=== PATIENT | female | born 2000 | race Caucasian/White ===

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

== ENCOUNTER 2020-04-30 22:56 | Emergency (ER) | payer MEDICAID ==
[~2020-04-30] VITALS: Ht 162.6 cm; Wt 102.1 kg
[2020-04-30 23:00] VITALS: BP 146/80
--- NOTE | 2020-04-30 23:07 | NUR ---
PT STEADY AMBULATING TO ROOM
--- NOTE | 2020-04-30 23:12 | NUR ---
PT GETS WEEKLY TESTOSTERONE SHOTS IN [place]. LAST SHOT "3 DAYS AGO" AND STATES NOTICED REDNESS AND PAIN THE DAY AFTER
[2020-04-30] MEDS ORDERED: LIDOCAINE-MPF 1%, 5ML ONE (23:27)
[2020-04-30] MEDS ORDERED: LIDOCAINE 1%, 10ML INFIL ONE (23:30)
--- NOTE | 2020-04-30 23:51 | NUR ---
ERP AT BEDSIDE FOR I/D
== END 2020-05-01 00:30 | disposition home or self-care (01) ==
LOC: ED 05-01 00:15
DX: L02.211 Cutaneous abscess of abdominal wall (principal); R10.9 Unspecified abdominal pain; M79.89 Other specified soft tissue disorders; Z90.89 Acquired absence of other organs
CPT/HCPCS: 10060; 99284

== ENCOUNTER 2020-06-21 22:58 | Emergency (ER) | payer MEDICAID ==
[~2020-06-21] VITALS: Ht 162.6 cm; Wt 104.4 kg
--- NOTE | 2020-06-21 23:28 | NUR ---
pt walked to room. in no acute distress at this time. placed on o2 sat and bp cuff. pt states she has not vomited today. resting comfortably.
[2020-06-22] MEDS ORDERED: SODIUM CHLORIDE FLUSH 10ML SYR IVF ONE
[2020-06-22 00:01] LABS: ALBUMIN 3.6 g/dL (3.4-5.0); ANION GAP 8 mmol/L (5-15); CALCIUM 8.5 mg/dL (8.5-10.1); CHLORIDE 112 mmol/L (98-107); CREATININE 0.95 mg/dL (0.55-1.02)
[2020-06-22 00:02] LABS: BASOPHILS % (AUTO) 1 % (0-1); EOSINOPHILS % (AUTO) 4 % (1-7); LYMPHOCYTES % (AUTO) 27 % (22-44); MEAN CORPUSCULAR HEMOGLOBIN 30.9 pg (27.0-34.8); MEAN CORPUSCULAR HGB CONC 35.1 g/dL (32.4-35.8); MEAN PLATELET VOLUME 8.1 fL (7.4-10.4); MONOCYTES % (AUTO) 7 % (2-9); NEUTROPHILS % (AUTO) 61 % (42-75); PLATELET COUNT 313 x10^3/uL (130-400); RED BLOOD COUNT 5.28 x10^6/uL (3.82-5.3); RED CELL DISTRIBUTION WIDTH 12.2 % (9.6-15.2)
[2020-06-22 00:03] LABS: MD NO
[2020-06-22 00:04] LABS: TROPONIN I < 0.015 ng/mL (0.000-0.045)
[2020-06-22 00:19] VITALS: BP 110/85
== END 2020-06-22 00:38 | disposition home or self-care (01) ==
LOC: ED 06-22 00:15
DX: J20.8 Acute bronchitis due to other specified organisms (principal); B34.9 Viral infection, unspecified; R07.9 Chest pain, unspecified; F17.200 Nicotine dependence, unspecified, uncomplicated
CPT/HCPCS: 36415; 71045; 80048; 82040; 84484; 85025; 85379; 99284

== ENCOUNTER 2020-07-21 03:04 | Emergency (ER) | payer MEDICAID ==
[~2020-07-21] VITALS: Ht 160 cm; Wt 104.8 kg
--- NOTE | 2020-07-21 03:15 | NUR ---
PT WHEELED TO ROOM WITH C COLLAR ON. PT C/O PAIN TO MULTIPLE AREAS AND XRAYS ORDERED. PAIN MEDS ORDERED AND PT MEDICATED PER EMAR. TORADOL IM TO RIGHT DELTOID GIVEN, AND PT PREFERS TO WAIT FOR C COLLAR TO CLEAR BEFORE TRYING TO TAKE PO MEDS SINCE SHE'S LYING FLAT.
[2020-07-21] MEDS ORDERED: ACETAMINOPHEN 500 MG TABLET ONE (03:30)
[2020-07-21] MEDS ORDERED: KETOROLAC 30 MG/1 ML IM ONE (03:30)
[2020-07-21] MEDS ORDERED: KETOROLAC 30 MG/1 ML ONE (03:30)
[2020-07-21] MEDS ORDERED: ACETAMINOPHEN 500 MG TABLET PO ONE (03:30)
[2020-07-21] MEDS ORDERED: DIPHENHYDRAMINE 50 MG CAPSULE ONE (04:18)
--- NOTE | 2020-07-21 04:25 | NUR ---
PT CALLED RN TO ROOM, AND C/O FEELING WARM AND FLUSHED, AND THAT SHE FEELS SOMETHING IN HER THROAT LIKE SOMETHING IS STUCK THERE. ON ASSESMENT PTS CHEEKS ARE RED AND WERE NOT THAT WAY EARLIER, AND PT ALSO HAS BLANCHED SKIN AROUND LIPS, AND APPEARS TO BE HAVING AN ALLERGIC REACTION TO THE TORADOL. MD TO BEDSIDE, AND BENADRYL ORDERED AND ADMINISTERED, ALONG WITH THE TYLENOL, PO. PT AIRWAY INTACT, GOOD AERATION AND OXYGENATION, AND NO DIFFICULTY IN TAKING PO MEDS. PT TAKEN TO XRAY AFTER, SINCE THE C-COLLAR HAS BEEN CLEARED. A&OX4.
[2020-07-21] MEDS ORDERED: DIPHENHYDRAMINE 25 MG CAPSULE PO ONE (04:30)
--- NOTE | 2020-07-21 05:09 | NUR ---
PT AMBULATED TO BATHROOM, IN NO ACUTE DISTRESS. NO RESPIRATORY DISTRESS AT THIS TIME. GOOD AERATION AND OXYGENATION.
[2020-07-21 06:03] VITALS: BP 128/81
== END 2020-07-21 06:05 | disposition home or self-care (01) ==
LOC: ED 05:50
DX: S16.1XXA Strain of muscle, fascia and tendon at neck level, initial encounter (principal); M25.571 Pain in right ankle and joints of right foot; M25.562 Pain in left knee; M25.552 Pain in left hip; F17.210 Nicotine dependence, cigarettes, uncomplicated; V49.49XA Driver injured in collision with other motor vehicles in traffic accident, initial encounter; Y93.89 Activity, other specified; Y92.89 Other specified places as the place of occurrence of the external cause; Y99.8 Other external cause status
CPT/HCPCS: 71045; 72110; 72125; 73502; 73564; 73610; 99284; 99406; J1885; Q0163

== ENCOUNTER 2020-07-26 19:04 | Emergency (ER) | payer MEDICAID ==
[~2020-07-26] VITALS: Ht 160 cm; Wt 98.0 kg
[2020-07-26] MEDS ORDERED: DIPHENHYDRAMINE 50 MG/ML, 1ML IVPush ONE (20:00)
[2020-07-26] MEDS ORDERED: METOCLOPRAMIDE 5 MG/ML, 2ML IVPush ONE (20:00)
[2020-07-26] MEDS ORDERED: METOCLOPRAMIDE 5 MG/ML, 2ML ONE (20:08)
[2020-07-26] MEDS ORDERED: DIPHENHYDRAMINE 50 MG/ML, 1ML ONE (20:08)
--- NOTE | 2020-07-26 20:23 | NUR ---
PIV PLACED. MEDS ADMIN PER JUN. PT POSITIONED FOR COMFORT.
--- NOTE | 2020-07-26 20:47 | NUR ---
AT BEDSIDE FOR REASSESSMENT.
[2020-07-26 21:36] VITALS: BP 127/80
== END 2020-07-26 21:41 | disposition home or self-care (01) ==
LOC: ED 19:33
DX: R51.9 Headache, unspecified (principal); J45.909 Unspecified asthma, uncomplicated; Z87.891 Personal history of nicotine dependence
CPT/HCPCS: 96374; 96375; 99284; J1200; J2765

== ENCOUNTER 2020-10-21 00:14 | Emergency (ER) | payer MEDICAID ==
[~2020-10-21] VITALS: Ht 162.6 cm; Wt 105.1 kg
[2020-10-21] MEDS ORDERED: LORazepam 1MG TABLET ONE (00:55)
[2020-10-21] MEDS ORDERED: LORazepam 1MG TABLET PO ONE (01:00)
[2020-10-21 01:08] LABS: ALBUMIN 3.8 g/dL (3.4-5.0); ANION GAP 5 mmol/L (5-15); CHLORIDE 108 mmol/L (98-107); CREATININE 1.06 mg/dL (0.55-1.02)
[2020-10-21 01:18] LABS: FREE T4 (FREE THYROXINE) 0.86 ng/dL (0.76-1.46)
[2020-10-21 01:46] LABS: BASOPHILS % (AUTO) 1 % (0-1); EOSINOPHILS % (AUTO) 2 % (1-7); LYMPHOCYTES % (AUTO) 24 % (22-44); MEAN CORPUSCULAR HEMOGLOBIN 31.1 pg (27.0-34.8); MEAN CORPUSCULAR HGB CONC 35.7 g/dL (32.4-35.8); MEAN PLATELET VOLUME 7.8 fL (7.4-10.4); MONOCYTES % (AUTO) 7 % (2-9); NEUTROPHILS % (AUTO) 65 % (42-75); PLATELET COUNT 386 x10^3/uL (130-400); RED BLOOD COUNT 5.08 x10^6/uL (3.82-5.3); RED CELL DISTRIBUTION WIDTH 11.7 % (9.6-15.2)
--- NOTE | 2020-10-21 02:21 | NUR ---
Patient given discharge instructions and they have confirmed that they understand the instructions. Patient ambulatory with steady gait. NAD, all questions answered appropriately, denies additional needs at this time. No personal belongings left in room after discharge.
[2020-10-21 02:23] VITALS: BP 149/79
== END 2020-10-21 02:27 | disposition home or self-care (01) ==
LOC: ED 00:45
DX: G47.00 Insomnia, unspecified (principal); F41.1 Generalized anxiety disorder; R06.02 Shortness of breath; Z90.89 Acquired absence of other organs
CPT/HCPCS: 36415; 80048; 82040; 84439; 84443; 84703; 85025; 93005; 99284

== ENCOUNTER 2020-11-17 17:05 | Emergency (ER) | payer MEDICAID ==
[~2020-11-17] VITALS: Ht 162.6 cm; Wt 105.0 kg
[2020-11-17 17:15] VITALS: BP 127/78
--- NOTE | 2020-11-17 18:57 | NUR ---
PT TO ROOM FROM LOBBY
[2020-11-17] MEDS ORDERED: IBUPROFEN 600 MG TABLET ONE (19:16)
[2020-11-17] MEDS ORDERED: DEXAMETHASONE 4 MG TABLET ONE (19:16)
[2020-11-17] MEDS ORDERED: IBUPROFEN 600 MG TABLET PO ONE (19:30)
[2020-11-17] MEDS ORDERED: IBUPROFEN 200 MG TABLET PO ONE (19:30)
[2020-11-17] MEDS ORDERED: DEXAMETHASONE 4 MG TABLET PO ONE (19:30)
== END 2020-11-17 20:07 | disposition home or self-care (01) ==
LOC: ED 20:01
DX: J02.8 Acute pharyngitis due to other specified organisms (principal); B97.89 Other viral agents as the cause of diseases classified elsewhere; F17.210 Nicotine dependence, cigarettes, uncomplicated; Z20.822 Contact with and (suspected) exposure to COVID-19; J45.909 Unspecified asthma, uncomplicated
CPT/HCPCS: 87081; 87147; 87880; 99283; 99406; U0003; U0005

== ENCOUNTER 2020-12-21 15:29 | Emergency (ER) | payer MEDICAID ==
[~2020-12-21] VITALS: Ht 162.6 cm; Wt 104.0 kg
--- NOTE | 2020-12-21 15:49 | NUR ---
C/O RIGHT UPPER BACK PAIN BETWEEN SHOULDER BLADE SINCE YESTERDAY. ED ROMERO AT BEDSIDE FOR EVAL.
[2020-12-21] MEDS ORDERED: HYDROcodone/APAP 5/325 TABLET PO ONE (16:00)
[2020-12-21] MEDS ORDERED: HYDROcodone/APAP 5/325 TABLET ONE (16:00)
--- NOTE | 2020-12-21 16:06 | NUR ---
PT TO XRAY.
--- NOTE | 2020-12-21 16:56 | NUR ---
REPORT FROM KRYSTINA ORTIZ. DR. TIRADO AT BEDSIDE TO DISCUSS POC.
[2020-12-21 17:22] LABS: BASOPHILS % (AUTO) 1 % (0-1); EOSINOPHILS % (AUTO) 2 % (1-7); LYMPHOCYTES % (AUTO) 24 % (22-44); MEAN CORPUSCULAR HEMOGLOBIN 30.4 pg (27.0-34.8); MEAN CORPUSCULAR HGB CONC 35.1 g/dL (32.4-35.8); MEAN PLATELET VOLUME 7.6 fL (7.4-10.4); MONOCYTES % (AUTO) 7 % (2-9); NEUTROPHILS % (AUTO) 66 % (42-75); PLATELET COUNT 350 x10^3/uL (130-400); RED BLOOD COUNT 5.14 x10^6/uL (3.82-5.3); RED CELL DISTRIBUTION WIDTH 12.1 % (9.6-15.2)
[2020-12-21 17:27] LABS: ALANINE AMINOTRANSFERASE 42 U/L (12-78); ALBUMIN 3.7 g/dL (3.4-5.0); ANION GAP 5 mmol/L (5-15); CHLORIDE 109 mmol/L (98-107); CREATININE 0.77 mg/dL (0.55-1.02)
[2020-12-21 17:30] LABS: ALKALINE PHOSPHATASE 88 U/L (45-117); BILIRUBIN,TOTAL 0.4 mg/dL (0.2-1.0); TOTAL PROTEIN 7.3 g/dL (6.4-8.2)
[2020-12-21 18:27] VITALS: BP 123/73
--- NOTE | 2020-12-21 18:27 | NUR ---
pt req repeat pain meds. ed md made aware.
[2020-12-21] MEDS ORDERED: KETOROLAC 30 MG/1 ML IM ONE (18:30)
[2020-12-21] MEDS ORDERED: KETOROLAC 60 MG/2 ML ONE (18:41)
[2020-12-21] MEDS ORDERED: IBUPROFEN 600 MG TABLET ONE (18:44)
--- NOTE | 2020-12-21 18:49 | NUR ---
PT MEDICATED ORDERED ON EMAR WITH IBUPROFEN. PT VERBALIZED UNDERSTANDING TO DC INSTRUCTIONS. AMBULATORY TO CHECKOUT C STEADY GAIT. VSS. PT'S MOTHER TO DRIVE HER HOME.
[2020-12-21] MEDS ORDERED: IBUPROFEN 600 MG TABLET PO ONE (19:00)
== END 2020-12-21 18:51 | disposition home or self-care (01) ==
LOC: ED 16:00
DX: M54.6 Pain in thoracic spine (principal)
CPT/HCPCS: 36415; 71046; 80053; 85025; 85379; 99284